=== PATIENT | male | born 1985 | race American Indian/Alaskan Native ===

== ENCOUNTER 2020-09-02 11:49 | Emergency (ER) | payer SELFPAY ==
[2020-09-02] MEDS ORDERED: MORPHINE 4 MG/1 ML INJ IV ONE (12:21)
[2020-09-02] MEDS ORDERED: SODIUM CHLORIDE 0.9% 1000 ML 1,000 ML IV ONE (12:21)
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
[2020-09-02] MEDS ORDERED: CALCIUM GLUCONATE 1,000 MG in SODIUM CHLORIDE 0.9% 100 ML IV ONE (13:52)
[2020-09-02] MEDS ORDERED: CALCIUM GLUCONATE 1000 MG/10 ML INJ TP SCH (14:00)
[2020-09-02 14:07] LABS: Basophils % (Auto) 0.8 % (0.0-1.8); Eosinophils # (Auto) 0.1 K/mm3 (0.0-0.4); Eosinophils % (Auto) 1.1 % (0.0-4.3); Hematocrit 42.9 % (35.5-45.6); Hemoglobin 14.8 gm/dl (11.8-15.2); Lymphocytes # (Auto) 1.8 K/mm3 (1.2-5.4); Lymphocytes % (Auto) 37.9 % (13.4-35.0); Mean Corpuscular HGB Conc 35 % (32-34); Mean Corpuscular Volume 84 fl (84-94); Monocytes # (Auto) 0.3 K/mm3 (0.0-0.8); Monocytes % (Auto) 5.8 % (0.0-7.3); Platelet Count 258 K/mm3 (140-440); Red Blood Count 5.12 M/mm3 (3.65-5.03)
[2020-09-02 14:36] LABS: BUN/Creatinine Ratio 12; Blood Urea Nitrogen 13 mg/dL (9-20); Calcium 9.2 mg/dL (8.4-10.2); Hemolysis Index 8
[2020-09-02 14:59] VITALS: BP 148/77
--- NOTE | 2020-09-03 11:14 | Electrocardiograph Report ---
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
== END 2020-09-02 15:00 | disposition home or self-care (01) ==
LOC: ED 11:49
DX: T23.202A Burn of second degree of left hand, unspecified site, initial encounter (principal); T59.5X1A Toxic effect of fluorine gas and hydrogen fluoride, accidental (unintentional), initial encounter; T31.0 Burns involving less than 10% of body surface; R07.89 Other chest pain; X08.8XXA Exposure to other specified smoke, fire and flames, initial encounter; Y93.89 Activity, other specified; Y92.89 Other specified places as the place of occurrence of the external cause; Y99.8 Other external cause status
CPT/HCPCS: 16000; 36415; 80048; 83735; 84484; 85025; 93005; 99283; J0610; J2270; J7030